=== PATIENT | female | born 1965 ===

== ENCOUNTER → 2017-10-31 | Emergency (ER) | payer OTHER ==
[~2017-10-31] VITALS: Ht 172.7 cm; Wt 83.9 kg
[~2017-10-31] MED LIST: CIPRO500 MG PO; LEVSIN/SL0.125 MG SL; NORVASC5 MG; PEPCID40 MG PO; TENORMIN50 M1; ZOFRAN4 MG PO
== END | disposition left against medical advice (07) ==
LOC: ER 18:48
DX: Z53.20 Procedure and treatment not carried out because of patient's decision for unspecified reasons (principal)